=== PATIENT | female | born 1985 | race Caucasian/White ===

== ENCOUNTER 2019-12-02 00:45 | Outpatient (CLI) | payer BC, SELFPAY ==
[2019-12-02 18:01] LABS: SARS-CoV-2 RNA PCR Negative
== END 2019-12-02 00:46 | disposition home or self-care (01) ==
LOC: ANHCOVIDDT 00:45
PROVIDERS: PCP Emergency Medicine; Visit Provider Internal Medicine Gastroenterology
DX: Z01.812 Encounter for preprocedural laboratory examination (principal); Z20.828 Contact with and (suspected) exposure to other viral communicable diseases
CPT/HCPCS: 87635; C9803; U0003

== ENCOUNTER 2019-12-04 01:40 | Day surgery (SDC) | payer BC, SELFPAY ==
[2019-11-27 14:32] VITALS: BMI 19.6
[2019-12-04 07:00] VITALS: BP 105/75; PULSE 77; RESP 16; TEMP 36.9; O2SAT 99
[2019-12-04] MEDS: LACTATED RINGERS 1,000 ML 150 ML IV CONT (07:14)
--- NOTE | 2019-12-04 07:24 | WPDANESEPPF ---
Anes - Initial Pre Proc Eval Procedure: Operation Date: 12/04/19 08:00 Proposed Procedures p Colonoscopy - Jonel Almeida MD Date/Time: 12/04/19 07:24 Surgeon: Jonel Almeida MD Pre Op Diagnosis: Ulcerative Proctitis Patient Data Age: 34 Gender: F Height: 5 ft 7 in Weight: 54.9 kg Last Vital Signs Temp 36.9 C 12/04/19 07:00 Pulse 77 12/04/19 07:00 Resp 16 12/04/19 07:00 BP 105/75 12/04/19 07:00 Pulse Ox 99 12/04/19 07:00 Allergies Allergy/AdvReac Type Severity Reaction Status Date / Time No Known Allergies Allergy Verified 12/04/19 06:56 Home Medications Medication Instructions Recorded Confirmed Type montelukast 10 mg tablet 10 mg PO DAILY 11/05/19 12/04/19 History norethindrone 1 mg-ethinyl 1 tablet PO DAILY 11/05/19 12/04/19 History estradiol 10 mcg (24)-iron 10 mcg(2) tablet Patient hx anesthesia problems: none Family hx anesthesia problems: none PMFSH Past Medical History Medical History BRCA gene positive History of fracture of finger L little finger Ulcerative proctitis Surgical History Surgical History History of bilateral breast biopsy History of removal of cyst R breast Family History Family History Grandparent Ovarian cancer Breast cancer Sibling Breast cancer Social History Social History Smoking status: Never smoker Alcohol intake: current Drinks per week: 2 Substance use: never Living arrangements: with family Gender identity (if verbalized by the patient): Female Spiritual care concerns: No Anes - Eval Final PreProcedure Day of Procedure 12/04/19 07:24 Patient weight: normal Heart: regular rate and rhythm Lungs: clear to auscultation Airway: Mallampati scale class II Neurological: alert and oriented Last oral intake: >/= 8 hours ASA classification: II Emergent: no Anesthetic plan: proceed Anesthesia type and monitoring: general GIVS and standard monitoring Informed Consent: The patient's anesthetic plan and its attendant risks and benefits were discussed with the patient/family/POA. Questions were solicited and answers provided to the satisfaction of the patient/family/POA.
--- NOTE | 2019-12-04 08:00 | WPDGICN ---
Assessment and Plan Additional Plan Patient with a history of ulcerative proctitis currently in remission although she had a recent flare several months ago. Plan is to use Canasa suppositories as needed. Patient should avoid nonsteroidal anti-inflammatory agents colonoscopy will be performed now is suggested at intervals in the future perhaps 5 year intervals initially. GI Consult Note Consult date/time: 12/04/19 08:00 HPI: Sabrina Villa is a 34 year old female Seen in evaluation at the request of Dr. Cool. Patient has a history of ulcerative proctitis. She recently had a flare of disease with rectal bleeding diarrhea pain this responded to Canasa suppositories 1000 mg at bedtime. She states that last flare took about a month and a half before resolution. Previous flare was 3 years prior to this. She does notice significant stress prior to her recent flare of disease. Patient presents today for surveillance colonoscopy. Her current weight appetite bowel movements a return to normal. She no longer has rectal bleeding. Her family history is noncontributory. She no longer is taking Canasa suppositories rather uses these p.r.n.. Her family history negative. she has no allergies. Review of Systems Review of Systems: All systems reviewed & are unremarkable except as noted in HPI and below PMFSH Past Medical History Medical History BRCA gene positive History of fracture of finger L little finger Ulcerative proctitis Surgical History Surgical History History of bilateral breast biopsy History of removal of cyst R breast Family History Family History Grandparent Ovarian cancer Breast cancer Sibling Breast cancer Social History Social History Smoking status: Never smoker Alcohol intake: current Drinks per week: 2 Substance use: never Living arrangements: with family Gender identity (if verbalized by the patient): Female Spiritual care concerns: No Meds Home Medications and Allergies Home Medications Medication Instructions Recorded Confirmed Type montelukast 10 mg tablet 10 mg PO DAILY 11/05/19 12/04/19 History norethindrone 1 mg-ethinyl 1 tablet PO DAILY 11/05/19 12/04/19 History estradiol 10 mcg (24)-iron 10 mcg(2) tablet Allergies Allergy/AdvReac Type Severity Reaction Status Date / Time No Known Allergies Allergy Verified 12/04/19 06:56 Vital Signs Vital Signs - 24 hr 12/04/19 07:00 Temperature 98.5 F Pulse Rate 77 Respiratory Rate 16 Blood Pressure 105/75 Pulse Oximetry 99 Exam Narrative: Exam Narrative: Physical exam reveals patient to be alert. Vital signs stable. HEENT exam unremarkable. Lungs are clear to auscultation and percussion. Heart is without murmur or extra sounds. Abdominal exam bowel sounds are present soft nontender with no organomegaly. Digital external rectal exam is normal.
[2019-12-04 08:27] VITALS: BP 118/99; PULSE 75; RESP 20; O2SAT 100
[2019-12-04 08:37] VITALS: BP 99/70; PULSE 61; RESP 20; O2SAT 100
[2019-12-04 08:47] VITALS: BP 114/70; PULSE 66; RESP 20; O2SAT 100
== END 2019-12-04 09:07 | disposition home or self-care (01) ==
PROVIDERS: PCP Physician Assistant; Visit Provider Internal Medicine Gastroenterology
PROC: 0DJD8ZZ Inspection of Lower Intestinal Tract, Via Natural or Artificial Opening Endoscopic (ICD-10-PCS; CPT 45378; principal; 2019-12-04 08:00)
DX: Z12.11 Encounter for screening for malignant neoplasm of colon (principal); K51.20 Ulcerative (chronic) proctitis without complications; K51.90 Ulcerative colitis, unspecified, without complications; Z80.41 Family history of malignant neoplasm of ovary; Z80.3 Family history of malignant neoplasm of breast; K92.1 Melena
CPT/HCPCS: 45380; 88305; J2704; J7120

== ENCOUNTER 2020-01-02 12:06 | Outpatient (NON) | payer BC, SELFPAY ==
[2020-01-02 20:46] LABS: SARS-CoV-2 RNA PCR Negative
== END 2020-01-02 12:07 ==
LOC: ANHCOVIDDT 12:07
PROVIDERS: PCP Physician Assistant; Visit Provider Physician Assistant
DX: R50.9 Fever, unspecified (principal); Z20.828 Contact with and (suspected) exposure to other viral communicable diseases
CPT/HCPCS: 87635; C9803; U0003

== ENCOUNTER → 2020-01-14 13:18 | Outpatient (REF) | payer BC, SELFPAY | LOC: ANHLAB 13:18 | PROVIDERS: PCP Physician Assistant; Visit Provider Nurse Practitioner | DX: D22.5 Melanocytic nevi of trunk (principal) | CPT/HCPCS: 88305; 88342 ==

== ENCOUNTER 2023-01-19 16:10 | Outpatient (CLI) | payer BC, SELFPAY ==
[2023-01-19 16:53] LABS: Hematocrit 37.4 % (37.0-47.0); Hemoglobin 11.9 g/dL (12.0-15.0); Mean Corpuscular HGB Conc 31.8 g/dl (32-36); Mean Corpuscular Volume 91.2 fl (80-100); Mean Platelet Volume 11.3 fl (7.4-10.4); Platelet Count Result 320 k/mm3 (150-375); Red Cell Distribution Width 13.8 % (11.5-14.5); White Blood Count 6.7 K/mm3 (4.5-10.0)
[2023-01-19 17:04] LABS: Alanine Aminotransferase 20 U/L (6-35); Albumin Level 3.8 g/dL (3.5-5.1); Alkaline Phosphatase 60 U/L (38-126); Anion Gap 10 mmol/L (8-16); Aspartate Amino Transferase 24 U/L (14-36); Bilirubin,Total 0.4 mg/dL (0.2-1.3); Blood Urea Nitrogen 9 mg/dL (7-17); CRP 7.9 mg/dL (<1.0); Calcium 8.6 mg/dL (8.4-10.2); Carbon Dioxide 26 mmol/L (22-30); Chloride 100 mmol/L (98-107); Estimated Glomerular Filt Rate > 60; Glucose 101 mg/dL (65-110); Potassium 4.3 mmol/L (3.4-5.0); Sodium 136 mmol/L (137-145)
[2023-01-19 17:28] LABS: Erythrocyte Sedimentation Rate 75 mm/hr (0-20)
== END 2023-01-19 16:11 | disposition home or self-care (01) ==
LOC: ANHLAB 16:11
PROVIDERS: PCP Physician Assistant; Visit Provider Nurse Practitioner Family
DX: K51.90 Ulcerative colitis, unspecified, without complications (principal); K51.20 Ulcerative (chronic) proctitis without complications
CPT/HCPCS: 36415; 80053; 85027; 85652; 86140

== ENCOUNTER → 2023-04-17 12:07 | Outpatient (CLI) | payer BC, SELFPAY ==
--- NOTE | ~2023-04-17 | XR_ITS ---
Clinical Indication: Cough PA and lateral views of the chest: Comparison: None Findings: The lungs are clear, without evidence of focal consolidation or pleural effusion. Cardiome diastinal silhouette is within normal limits. Bones and soft tissues are unremarkable. Impression: Normal chest. Reviewed, dictated and finalized at [facility]. ER [employer]ER Impression: Normal chest.
== END ==
PROVIDERS: PCP Emergency Medicine; Visit Provider Emergency Medicine
DX: R05.3 Chronic cough (principal)
CPT/HCPCS: 71046